=== PATIENT | male | born 1950 | race Caucasian/White ===

== ENCOUNTER 2019-10-07 07:52 | Inpatient (IN) ==
--- NOTE | 2019-09-22 11:21 | PAT Medication Instructions ---
Medication Instructions Date of Service September 22, 2019 Home Medications acetaminophen [Tylenol Extra Strength] 500 mg PO UD PRN allopurinol 300 mg PO QAM hydrocodone-acetaminophen 1 tab PO UD PRN lisinopril-hydrochlorothiazide 1 tab PO QAM loratadine [Claritin] 10 mg PO DAILY PRN metformin 500 mg PO BID rosuvastatin [Crestor] 10 mg PO HS DO NOT take the morning of surgery lisinopril-hydrochlorothiazide 1 tab PO QAM loratadine [Claritin] 10 mg PO DAILY PRN metformin 500 mg PO BID Take morning of surgery With a small sip of water, OTHERWISE NOTHING TO EAT OR DRINK AFTER MIDNIGHT: acetaminophen [Tylenol Extra Strength] 500 mg PO UD PRN (if needed, may be taken up to four hours before surgery) allopurinol 300 mg PO QAM hydrocodone-acetaminophen 1 tab PO UD PRN (if needed, may be taken up to four hours before surgery) Take evening before surgery acetaminophen [Tylenol Extra Strength] 500 mg PO UD PRN (if needed) hydrocodone-acetaminophen 1 tab PO UD PRN (if needed) loratadine [Claritin] 10 mg PO DAILY PRN (if needed) metformin 500 mg PO BID rosuvastatin [Crestor] 10 mg PO HS Other Notes If you have any questions please call us at [phone] or [phone] or [phone] or [phone]
--- NOTE | 2019-09-22 11:54 | Anesthesiology Consultation ---
Date of Service September 22, 2019 Assessment & Plan (1) Encounter for pre-operative examination: COVID Status: As of 09/21 assessment, patient denies travel to endemic area, known exposure/sick contacts, or symptoms of COVID19. Patient instructed to follow strict social distancing guidelines, wear a mask in public and avoid travel for 14 days prior to surgery. Preoperative COVID19 testing to be completed prior to surgery. Patient made aware to self-isolate as much as possible between COVID testing and surgery. Chart Review Chart Review: Acceptable Risk for Surgery and Patient seen in Pre Admission Testing Teaching & Discussion Instructed NPO after midnight before surgery, except medications with 15 cc of water. Medication instructions provided according to the PAT guidelines. History Surgery Operation Date: 10/07/19 11:05 Proposed Procedures p L2-S1 Decompression and Fusion, Spinal Cord Monitoring - Cj Cabral DO Height/Weight Height: 5 ft 9 in Weight: 102.2 kg Allergies Allergy/AdvReac Type Severity Reaction Status Date / Time ibuprofen [From Motrin] AdvReac Unknown PT HAS HX Verified 09/16/19 12:25 GI BLEED Medications Home Medications Medication Instructions Recorded Confirmed Last Taken acetaminophen [Tylenol Extra 500 mg PO UD PRN 09/16/19 09/16/19 Unknown Strength] allopurinol 300 mg PO QAM 09/16/19 09/16/19 Unknown hydrocodone-acetaminophen 1 tab PO UD PRN 09/16/19 09/16/19 Unknown lisinopril-hydrochlorothiazide 1 tab PO QAM 09/16/19 09/16/19 Unknown loratadine [Claritin] 10 mg PO DAILY PRN 09/16/19 09/16/19 Unknown metformin 500 mg PO BID 09/16/19 09/16/19 Unknown rosuvastatin [Crestor] 10 mg PO HS 09/16/19 09/16/19 Unknown Past Medical History Medical History High blood pressure High cholesterol History of GI bleed PT REPORTS R/T HX MOTRIN USE History of gout Sleep apnea CPAP Spinal stenosis Type 2 diabetes mellitus Exercise / Class Metabolic Activity II 4-5 Yardwork/Stairs/Walk up hill Past Family History Family History Other Family history of diabetes mellitus in mother Past Surgical History Surgical History History of back surgery NO HARDWARE History of bilateral knee replacement History of colonoscopy History of shoulder surgery LEFT Past Anesthesia History No Hx of Anesthesia Complications and No Family Hx of Anesthesia Complications History of PONV No Hx of PONV and No Hx of Motion Sickness Social History Smoking Status: Former smoker Do You Dip or Chew Tobacco: No Smoking End Date: 20 YR AGO Hx Alcohol Use: Yes (SOCIAL) Alcohol type: beer and hard liquor alcohol intake frequency: a few times a week Hx Substance Use: No Review of Systems Pt denies any recent chest pain, shortness of breath, palpitations, cough, fever or URI. Physical Exam Vital Signs BP: 155/83 P: 70bpm SPO2: 97% RA T: 98.2 F R: 16 ENMT Mouth: + dental restorations (2 crowns on molars) and + macroglossia; no chipped teeth and no loose teeth Thyromental Distance: > or= 3.5 Finger Breadths (3.5) Mallampati Class: II Neck + short neck and + thick neck; neck extension not limited Respiratory normal respiratory effort Auscultation: lungs clear to auscultation bilaterally and + diminished lung sounds (in apices) Cardiovascular Rate/Rhythm: regular rate and regular rhythm Heart Sounds: no murmur Vessels: no carotid bruit Extremities: no edema Testing Laboratory Results 09/22/19 12:00 09/22/19 12:00 PT 10.3 Seconds (9.0-12.0) 09/22/19 12:00 INR 1.0 (0.9-1.1) 09/22/19 12:00 APTT 27.1 Seconds (21.0-31.0) 09/22/19 12:00 Urine Color Yellow 09/22/19 12:00 Urine Appearance Clear (Clear) 09/22/19 12:00 Urine pH 6.0 (4.5-7.5) 09/22/19 12:00 Ur Specific Holt 1.010 (1.000-1.030) 09/22/19 12:00 Urine Protein Negative (Negative) 09/22/19 12:00 Urine Glucose (UA) Negative (Negative) 09/22/19 12:00 Urine Ketones Negative (Negative) 09/22/19 12:00 Urine Nitrite Negative (Negative) 09/22/19 12:00 Ur Leukocyte Esterase Negative (Negative) 09/22/19 12:00 Blood Type O Negative 09/22/19 12:00 Antibody Screen NEGATIVE 09/22/19 12:00 Electrocardiogram Date: 09/22/19 Findings: + NSR @ (69) Chest X-Ray Date: 09/22/19 FINDINGS: Cardiomediastinal and hilar silhouettes are within normal limits. No pneumothorax, pleural effusion, airspace consolidation or overt pulmonary edema. Mild eventration of the right hemidiaphragm. Calcified plaque of the thoracic aortic arch. Bones appear grossly intact. IMPRESSION: No acute process.
[2019-09-22 12:22] LABS: Basophils # (auto) 0.03 K/uL (0-0.2); Basophils % (auto) 0.5 %; Eosinophils # (auto) 0.11 K/uL (0-0.5); Hematocrit (blood only) 35.3 % (42-52); Immature Granulocytes # (auto) 0.07 K/uL (0.00-0.02); Immature Granulocytes % (auto) 1.3 %; Lymphocytes # (auto) 1.18 K/uL (1.2-3.4); Lymphocytes % (auto) 21.4 %; Mean Corpuscular Hemoglobin 32.4 pg (25-34); Mean Corpuscular Volume 95.4 fL (80-100); Mean Platelet Volume 9.6 fL (7.4-10.4); Monocytes % (auto) 5.4 %; Neutrophils # (auto) 3.82 K/uL (1.4-6.5); Neutrophils % (auto) 69.4 %; Platelet Count 178 K/uL (130-400); RDW Coefficient of Variation 13.7 % (11.5-14.5); RDW Standard Deviation 47.4 fL (36.4-46.3); White Blood Count 5.51 K/uL (4.8-10.8)
--- NOTE | 2019-09-22 12:23 | XRay Report ---
XR chest Pre-admission PA/Lat HISTORY: 69 years-old Male PAT preoperative exam. No acute chest complaints. COMPARISON: None TECHNIQUE: PA and lateral views of the chest FINDINGS: Cardiomediastinal and hilar silhouettes are within normal limits. No pneumothorax, pleural effusion, airspace consolidation or overt pulmonary edema. Mild eventration of the right hemidiaphragm. Calcifi ed plaque of the thoracic aortic arch. Bones appear grossly intact. IMPRESSION: No acute process. ACT 112: Negative or not required by law. The above report was generated using voice recognition software. It may contain grammatical, syntax o r spelling errors. Electronically signed by: Liang Herbert M.D. 09/22/2019 12:21 PM
[2019-09-22 12:27] LABS: Appearance Urine Clear (Clear); Bilirubin Urine Negative (Negative); Blood Urine Negative (Negative); Color Urine Yellow; Glucose Urine UA Negative (Negative); Ketones Urine Negative (Negative); Leukocyte Esterase Urine Negative (Negative); Nitrite Urine Negative (Negative); Protein Urine Negative (Negative); Urobilinogen Urine Negative (Negative)
[2019-09-22 12:35] LABS: Partial Thromboplastin Time 27.1 Seconds (21.0-31.0); Prothrombin Time 10.3 Seconds (9.0-12.0)
[2019-09-22 13:55] LABS: BUN Creatinine Ratio 16.9 (10-20); Creatinine Clr Calc Pharmacy 77.5 ml/min; Est GFR (Non-African American) 69.9; Potassium 4.1 mmol/L (3.5-5.1)
--- NOTE | 2019-09-23 06:45 | Electrocardiogram Report ---
Test Reason : Blood Pressure : / mmHG Vent. Rate : 069 BPM Atrial Rate : 069 BPM P-R Int : 162 ms QRS Dur : 094 ms QT Int : 384 ms P-R-T Axes : 070 052 066 degrees QTc Int : 411 ms Normal sinus rhythm Normal ECG No previous ECGs available Confirmed by Hal Gaytan ([id number]) on 09/23/2019 6:45:14 AM Referred By: Cj Cabral Confirmed By:Hal Gaytan
[~2019-10-07 07:52] MED LIST: ACETAMINOPHEN 500 MG TAB PO SCH; CEFAZOLIN 2000MG 2,000 MG/15 ML SYR IV SCH; CeleBREX 200 MG CAP PO SCH; GABAPENTIN 300 MG CAP PO SCH; LR 15ML/HR IV SCH
[2019-10-07] MEDS ORDERED: HYDROmorphone INJ 1 MG/ML SYRINGE IV PRN (08:13)
[2019-10-07] MEDS ORDERED: LABETALOL HCL IV 5 MG/ML 20ML IV PRN (08:13)
[2019-10-07] MEDS ORDERED: ATROPINE SULFATE 0.1 MG/ML 10ML SYR IV PRN (08:13)
[2019-10-07] MEDS ORDERED: ePHEDrine sulfate 50 MG/ML AMP IV PRN (08:13)
[2019-10-07] MEDS ORDERED: PHENYLEPHRINE 100MCG/ML 5ML SYR IV PRN (08:13)
[2019-10-07] MEDS ORDERED: ONDANSETRON INJ 2 MG/ML 2 ML VIAL IV PRN ×2 (08:13→14:26)
[2019-10-07] MEDS ORDERED: MEPERIDINE HCL 25 MG/ML CARP/VIAL IV PRN (08:13)
[2019-10-07] MEDS ORDERED: INSULIN ASPART PER UNIT SC STA ×3 (09:08→13:25)
--- NOTE | 2019-10-07 09:24 | History & Physical Bridge Note ---
Date of Service October 07, 2019 History & Physical Bridge Note I have examined the patient, reviewed the History & Physical and in the interval since the performance of the History & Physical I have noted the following changes of clinical significance: no changes noted
--- NOTE | 2019-10-07 09:25 | History & Physical Report ---
Date of Service October 07, 2019 Assessment & Plan (1) Neurogenic claudication due to lumbar spinal stenosis: L2-S1 decompression fusion Present on Admission?: Yes History of Present Illness Chief Complaint: Back and bilateral leg pain Primary Care Provider: Isidro Barajas DO This is a 69-year-old male who presents with worsening back and bilateral leg pain. After failing course of nonoperative care is here for surgical intervention. Allergies Allergy/AdvReac Type Severity Reaction Status Date / Time ibuprofen [From Motrin] AdvReac Unknown PT HAS HX Verified 10/07/19 08:24 GI BLEED Home Medications Home Medications Medication Instructions Recorded Confirmed Type acetaminophen [Tylenol Extra 500 mg PO UD PRN 09/16/19 10/07/19 History Strength] allopurinol 300 mg PO QAM 09/16/19 10/07/19 History hydrocodone-acetaminophen 1 tab PO UD PRN 09/16/19 10/07/19 History lisinopril-hydrochlorothiazide 1 tab PO QAM 09/16/19 10/07/19 History loratadine [Claritin] 10 mg PO DAILY PRN 09/16/19 10/07/19 History metformin 500 mg PO TID 09/16/19 10/07/19 History rosuvastatin [Crestor] 10 mg PO HS 09/16/19 10/07/19 History Past Med/Surg History Medical History High blood pressure High cholesterol History of GI bleed PT REPORTS R/T HX MOTRIN USE History of gout Sleep apnea CPAP Spinal stenosis Type 2 diabetes mellitus Surgical History History of back surgery NO HARDWARE History of bilateral knee replacement History of colonoscopy History of shoulder surgery LEFT Family History Other Family history of diabetes mellitus in mother Social History Smoking Status: Former smoker Smoking End Date: 20 YR AGO; Do You Dip or Chew Tobacco: No; Hx Alcohol Use: Yes (SOCIAL) Alcohol type: beer and hard liquor Hx Substance Use: No Preferred Language: Kyrgyz Communication Ability: Effective Communication Ability Comment: PT REQUESTS TO BE ON SPEAKER PHONE FOR INTERVIEW Coastal Tug Mate Required: No Beliefs That Will Affect Care: None Current Living Situation: Spouse Other Information That Helps Us Care for You: No Feels Safe at Home: Yes Physical Exam Physical Exam: Patient is alert and oriented neurologically intact. Heart regular rate and rhythm. Lungs clear to auscultation. Results & Data Vital Signs (Past 12 Hours) Vital Signs Temp Pulse Resp BP Pulse Ox 10/07/19 08:15 36.8 C 81 18 176/90 H 98
[2019-10-07] MEDS ORDERED: PROPOFOL IV EMULSION 10 MG/ML 20 ML VIAL IV ONE (09:32)
[2019-10-07] MEDS ORDERED: ONDANSETRON INJ 2 MG/ML 2 ML VIAL ONE (09:32)
[2019-10-07] MEDS ORDERED: HYDROmorphone INJ 2 MG/ML SYR/VIAL ONE (09:32)
[2019-10-07] MEDS ORDERED: GLYCOPYRROLATE 0.2 MG/ML VIAL ONE (09:32)
[2019-10-07] MEDS ORDERED: DEXAMETHASONE SOD INJ 4 MG/ML VIAL ONE (09:32)
[2019-10-07] MEDS ORDERED: LIDOCAINE HCL 2% 2 ML VIAL/AMP(20MG/ML) INFIL ONE (09:32)
[2019-10-07] MEDS ORDERED: MIDAZOLAM HCL 1 MG/ML 2ML VIAL ONE (09:32)
[2019-10-07] MEDS ORDERED: LARYING-O-JET KIT (LTA) ONE (09:32)
[2019-10-07] MEDS ORDERED: ROCURONIUM BROMIDE 10 MG/ML 5 ML VIAL IV ONE ×5 (09:32→12:46)
[2019-10-07] MEDS ORDERED: SUCCINYLCHOLINE CHLORIDE 20 MG/ML 10 ML VIAL IV ONE (09:32)
[2019-10-07] MEDS ORDERED: NEOSTIGMINE METHYLSULFATE 1 MG/ML 10ML VIAL ONE (09:32)
[2019-10-07] MEDS ORDERED: BUPIVACAINE/EPINEPHRINE 0.25% 1:200,000 30 ML VIAL ONE (09:46)
[2019-10-07] MEDS ORDERED: BACITRACIN INJ 50,000 UNIT VIAL ONE (09:46)
[2019-10-07] MEDS ORDERED: NovoLIN-R INSULIN PER UNIT CHARGE ONE (10:49)
[2019-10-07] MEDS ORDERED: ALBUMIN HUMAN 5% 12.5 GM/250 ML VIAL IV ONE ×2 (11:42→12:14)
[2019-10-07] MEDS ORDERED: fentaNYL citrate 100 MCG/2 ML VIAL ONE (12:34)
[2019-10-07] MEDS ORDERED: FLOSEAL HEMOSTATIC MATRIX 10ML TOP ONE (12:54)
--- NOTE | 2019-10-07 12:55 | Operative Report ---
Post Operative Report Pre & Post Diagnosis Operation Date: 10/07/19 09:35 Pre-Op Diagnosis: Lumbar Spinal Stenosis with Neurogenic Claudication Post-Op Diagnosis: Lumbar Spinal Stenosis with Neurogenic Claudication I identified the patient and participated in the time-out.: Yes Procedure Operation Date: 10/07/19 09:35 Actual Procedures #1 revision decompression and fusion L2-3, L3-4, L4-5 and L5-S1. #2 posterior spinal fusion L2-S1. #3 placement posterior segmental instrumentation L2-S1. #4 interbody fusion L3-4, L4-5 and L5-S1. #5 placed a peek cage 9 x 26 mm at L3-4 9 x 26 mm at L4-5 and 12 x 26 mm L5-S1. #6 placement of locally harvested morselized autograft in the posterior lateral gutters. #7 placement infuse collagen sponge, master graft in the posterior lateral gutters and ostial amp and interbody space. Surgeon Cj Cabral, DO Cloth Weaver Miley Davis Estimated Blood Loss 800 Findings See Below The patient is 5 foot 9 weighing over 100 kg with a BMI in excess of 32. This combined with an EBL of greater than 800 cc created significant technical difficulty adding at least 50% increase to the operative time. Specimens None Indications This is a 69-year-old male who presents with above-mentioned diagnosis after failing extensive course of nonoperative care is here for the above-mentioned procedure. Description of Procedure Patient was met with identified informed consent obtained. Patient was then taken to the operative suite underwent intubation placed in a prone position the Luis Fernando table on top of the Wilmar frame. All bony prominences well-padded eyes inspected to ensure no external pressure placed upon the. This point the lumbar spine was prepped and draped in a normal sterile fashion. Sharp dissection with the assistance of Bovie cautery was performed down to and exposing the remaining lamina and transverse processes of L2 L3-L4-L5 and S1 levels bilaterally. From a caudal cephalad fashion a revision complete laminectomy of L5 L4 L3 and L2 was performed including bilateral medial facetectomies and foraminotomies addressing severe spinal stenosis. Pedicle screws were then placed in L2 L3-L4-L5 and the S1 levels bilaterally with assistance of fluoroscopy and appropriately sized karlene placed. By way of a trans-foramen approach on the left complete discectomy of L5-S1 was performed endplates curetted to subcortical bleeding bone and a 12 x 26 mm peek cage filled osteo-amp bone graft tapped in position. Then proceeded L for L5. Again by way of a transforaminal portion left complete discectomy performed endplates curetted to subcortical bleeding bone and a 9 x 26 mm peek cage filled with osteo-bone graft tapped in position. Lastly progressed to L3- L4 and again by way of a transforaminal portion left complete discectomy performed endplates curetted to subcortical any bone and a 9 x 26 mm peek cage filled with osteo-bone graft tapped in position. The rods were then locked into final position bilaterally. The transverse processes of L2 L3-L4-L5 and sacral ala burred to subcortical bleeding bone. Infuse collagen sponge mass graft local autograft was then placed in the posterior lateral gutters. 15 round EDDIE drain inserted. The incision was then closed with 1 Vicryl in the fascia 2-0 Vicryl subcutaneously and 4 Monocryl for final skin closure. Steri-Strip sterile dressings placed. Patient waken taken PACU stable addition. Please note spinal cord monitoring was utilized that the procedure no changes noted. Lastly Miley Davis was present at the entire procedure involved the patient positioning complex portions of the surgery and final skin closure. I attest to the content of the Intraoperative Record and any orders documented therein. Any exceptions are noted below.
[2019-10-07] MEDS ORDERED: INSULIN ASPART PER UNIT ONE (13:26)
[2019-10-07] MEDS: fentaNYL citrate 100 MCG/2 ML VIAL IV PRN ×2 (13:28→13:33)
--- NOTE | 2019-10-07 13:32 | Fluoroscopy Report ---
INTRAOPERATIVE RADIOGRAPHS CLINICAL HISTORY: L2-S1 spinal fusion. Fluoroscopy time: 28 seconds. FINDINGS: 4 spot fluoroscopic views of the lumbar spine are presented. There has been discectomy at L 3-L4, L4-L5, and L5-S1 with laminectomy and posterior fusion from L2-S1. Interpedicular screws are pr esent at all levels. The orthopedic hardware appears intact. IMPRESSION: Intraoperative images from L2-S1 spinal fusion as above. Electronically signed by: Lazaro Galaviz M.D. 10/07/2019 1:31 PM
[2019-10-07] MEDS ORDERED: LORATADINE 10 MG TAB PO PRN (14:26)
[2019-10-07] MEDS ORDERED: PROMETHAZINE HCL 12.5 MG in SODIUM CHLORIDE 0.9% 50 ML IV PRN (14:26)
[2019-10-07] MEDS ORDERED: DO NOT ADMINISTER PNEUMOCOCCAL VACCINE PRN (14:26)
[2019-10-07] MEDS ORDERED: LORazepam 0.5 MG TAB PO PRN (14:26)
[2019-10-07] MEDS ORDERED: DO NOT ADMINISTER FLU VACCINE PRN (14:26)
[2019-10-07] MEDS ORDERED: HYDROmorphone INJ 0.5 MG/0.5 ML SYR IV PRN (14:26)
[2019-10-07] MEDS ORDERED: NALOXONE HCL 0.4 MG/1 ML VIAL/CARP IV PRN (14:26)
[2019-10-07] MEDS ORDERED: ACETAMINOPHEN 500 MG TAB PO PRN (14:26)
[2019-10-07] MEDS ORDERED: METOCLOPRAMIDE HCL INJ 5 MG/ML 2 ML VIAL IV PRN (14:26)
[2019-10-07] MEDS ORDERED: SOD PHOSPHATE/SOD BIPHOSPHATE ENEMA 132 ML BTL PR PRN (14:26)
[2019-10-07] MEDS ORDERED: FAMOTIDINE 20 MG TAB PO PRN (14:26)
[2019-10-07] MEDS ORDERED: TRAMADOL HCL 50 MG TABLET PO PRN (14:26)
[2019-10-07] MEDS ORDERED: LORazepam 0.5 MG/1 ML VIAL IV PRN (14:26)
[2019-10-07] MEDS ORDERED: ALUMINUM/MAGNESIUM SUSP 30 ML UDC PO PRN (14:26)
[2019-10-07] MEDS ORDERED: ACETAMINOPHEN 1,000 MG/100 ML VIAL IV PRN (14:26)
[2019-10-07] MEDS ORDERED: bisacodyL 10 MG SUPP PR PRN (14:26)
[2019-10-07] MEDS ORDERED: ONDANSETRON 4 MG OD TAB PO PRN (14:26)
[2019-10-07] MEDS ORDERED: PHARMACY GLYCEMIC MGMT CONSULT PRN (14:41)
[2019-10-07] MEDS: HYDROmorphone INJ 1 MG/ML SYRINGE IV PRN ×2 (14:51→22:18)
--- NOTE | 2019-10-07 15:05 | Pharmacy Report ---
Glycemic Control Consultation - Date of Service October 07, 2019 - Scope Scope: Glycemic Pharmacist consulted for glycemic control and to write orders per [facility] inpatient glycemic control protocol. - Objective Weight: 100.652 kg Accuchecks BSG (last 24hrs): 10/07/19 10/07/19 10/07/19 08:10 10:45 12:00 POC Glucose 198 H 202 H 172 H 10/07/19 13:18 POC Glucose 200 H - Recent Pertinent Medications Outpatient Anti-diabetic Regimen: * metformin 500 tid * A1c = ordered for 10/07 AM Risk Factors for Insulin Resistance: * Steroids: dxm 8 iv * Recent Surgery: POD 0 * Diet: clears - Assessment & Plan Assessment & Plan: ASSESSMENT: * 69 year old, with neurogenic claudication due to lumbar spinal stenosis now s/p surgery, POD 0 * Type 2 diabetic managed only on metformin at home. Unclear A1C, ordered for tomorrow * Patient received dexamethasone intraop therefore anticipate steroid induced hyperglycemia / plan to utilize NPH and novolog post op PLAN FOR INPATIENT GLYCEMIC CONTROL: * Holding outpatient oral diabetes medications * Basal insulin * NPH 20 units x 1 now (0.2 units/kg) - to cover steroids * Bolus insulin * NovoLog per scale ACHS or Q6hrs while NPO * Goal Range: Low 110 mg/dL - High 140 mg/dL * Correction Factor: 15 mg/dL/unit * Nutritional / Prandial insulin per carb ratio of 1 unit per 5 grams CHO consumed * Please note that the plan above was derived based on current level of insulin resistance and hospital stress. These recommendations are appropriate for inpatient admission only. Plan of care upon discharge will need to be reassessed to avoid potential outpatient hypo/hyperglycemia. Thank you.
[2019-10-07] MEDS ORDERED: NovoLIN-N (NPH) PER UNIT CHARGE SQ ONE (15:15)
--- NOTE | 2019-10-07 15:46 | Consultation ---
Date of Consultation October 07, 2019 Assessment & Plan (1) Status post lumbar surgery: Post op day# 0 S/P L2-L5 decompression and fusion by Dr Cabral EBL#800ml -pain management per ortho -wound management per ortho -PT/OT as appropriate -DVT prophylaxis per ortho -incentive spirometry -monitor H&H for acute blood loss anemia; pre-op Hgb: 12 (2) Type 2 diabetes mellitus: Pt Reports A1c: 7.3 on 09/29/2019 (do not have formal documentation) -Hold metformin -Novolog sliding scale, glycemic pharmacy on board, appreciate management (3) HTN (hypertension): BP stable -Will hold lisinopril/HCTZ and reassess tomorrow (4) HLD (hyperlipidemia): -Continue rosuvastatin (5) Sleep apnea: -CPAP HS (6) History of gout: -Continue allopurinol DVT Prophylaxis -SCDs per ortho Disposition per primary service Follows with Dr Isidro Barajas in [place] for routine care Pt was seen and care coordinated with Dr Allred. See addendum Thank you for this consultation. We will follow the patient with you during their hospital stay. You can reach a [facility] via pager @ [phone]. Supervising Physician Co-Signing Physician Notes Attending addendum: Patient seen and examined, care coordinated with Keena Zavala PA-C 69-year-old male status post spinal decompression surgery today Recovering well postop EBL 800 mL We will check H&H in a.m. for SS to assess acute blood loss anemia Physical exam: General: Very pleasant no acute distress Lungs: Clear to auscultate no wheeze or rales Heart with regular rate and rhythm no edema Abdomen: Soft nontender Neuro: No focal deficit, alert and oriented times Hypertension: Blood pressure was borderline low postoperatively, given IV fluids, Hold HCTZ lisinopril, We will reassess tomorrow please refer to further documentation by Lauren Zavala PA-C for discussion of other chronic issues Alana Allred MD History of Present Illness Requesting Physician: Dr Cabral Reason for Consultation: Post op medical management Attending Physician: Cj Cabral DO History of Present Illness Pt is 69 y/o M with PMH HTN, HLD, DM II, sleep apnea, obesity, gout seen in medical consultation s/p L2-L5 decompression and fusion today by Dr Cabral. Post op having some low back pain. Reports legs still feel a little tingling. No SOB, CP, nausea, dizziness. Denies fever/chills, neck pain, palpitations, cough, sore throat, abdominal pain, extremity edema, rashes, urinary symptoms. Allergies Allergy/AdvReac Type Severity Reaction Status Date / Time ibuprofen [From Motrin] AdvReac Unknown PT HAS HX Verified 10/07/19 08:24 GI BLEED Home Medications Home Medications Medication Instructions Recorded Confirmed Type acetaminophen [Tylenol Extra 500 mg PO UD PRN 09/16/19 10/07/19 History Strength] allopurinol 300 mg PO QAM 09/16/19 10/07/19 History hydrocodone-acetaminophen 1 tab PO UD PRN 09/16/19 10/07/19 History lisinopril-hydrochlorothiazide 1 tab PO QAM 09/16/19 10/07/19 History loratadine [Claritin] 10 mg PO DAILY PRN 09/16/19 10/07/19 History metformin 500 mg PO DAILY 09/16/19 10/07/19 History rosuvastatin [Crestor] 10 mg PO HS 09/16/19 10/07/19 History metformin 1,000 mg PO PM 10/07/19 10/07/19 History Patient History Medical History High blood pressure High cholesterol History of GI bleed PT REPORTS R/T HX MOTRIN USE History of gout Obesity Sleep apnea CPAP Spinal stenosis Type 2 diabetes mellitus Surgical History History of back surgery NO HARDWARE History of bilateral knee replacement History of colonoscopy History of shoulder surgery LEFT Family History Other Family history of diabetes mellitus in mother Social History Smoking Status: Former smoker Smoking End Date: 20 YR AGO; Do You Dip or Chew Tobacco: No; Hx Alcohol Use: Yes (SOCIAL) Alcohol type: beer and hard liquor Hx Substance Use: No Preferred Language: Bermudian Communication Ability: Effective Communication Ability Comment: PT REQUESTS TO BE ON SPEAKER PHONE FOR INTERVIEW Skip Load Driver Required: No Beliefs That Will Affect Care: None Current Living Situation: Spouse Other Information That Helps Us Care for You: No Feels Safe at Home: Yes Review of Systems Review of Systems: All systems reviewed & are unremarkable except as noted in HPI & below Physical Exam Physical Exam: General: no distress, obesity Head: normocephalic, atraumatic Eyes: PERRL, EOM's intact, conjunctiva non-injected, anicteric ENT: normal inspection external ears, nose, mucous membranes moist Neck: supple, trachea midline Lungs: clear, no respiratory distress, no wheezing/rhonchi/rales CV: RRR, no murmur, no pretibial edema Abd: normal BS, soft, non-tender Back: surgical dressing in place is dry, +EDDEI drain with serosanguineous drainage Ext: no cyanosis, no calf tenderness; pedal pushes and pulls intact bilaterally, sensation to light touch intact, distal pulses intact Neuro: A&O x 3, no focal deficits noted, normal affect Skin: warm, dry Results & Data ([facility]) Vital Signs (Past 12 Hours) Vital Signs Temp Pulse Pulse Resp BP Pulse Ox 10/07/19 15:12 36.6 C 84 17 121/74 98 10/07/19 14:56 82 16 127/78 97 10/07/19 14:15 36.4 C L 84 16 129/76 98 10/07/19 14:05 88 16 130/78 95 10/07/19 13:50 36.7 C 93 H 15 145/73 H 98 10/07/19 13:40 94 H 15 143/83 H 97 10/07/19 13:30 94 H 14 145/90 H 97 10/07/19 13:20 94 H 17 136/92 97 10/07/19 13:13 36.9 C 84 14 134/65 94 10/07/19 08:15 36.8 C 81 18 176/90 H 98
[2019-10-07] MEDS: SODIUM CHLORIDE 0.9% 1000ML 1,000 ML IV SCH ×2 (16:31→23:17)
[2019-10-07] MEDS: CEFAZOLIN 2000MG 2,000 MG/15 ML SYR IV SCH ×2 (16:33→23:55)
[2019-10-07] MEDS: KETOROLAC TROMETHAMINE 15 MG/ML VIAL IV SCH ×2 (16:34→21:08)
[2019-10-07] MEDS: INSULIN ASPART 100 UNITS/ML 3 ML PEN SC SCH ×3 (18:55→23:56)
[2019-10-07] MEDS: DOCUSATE SODIUM/SENNA 50/8.6MG TAB PO SCH (21:08)
[2019-10-07] MEDS: ROSUVASTATIN CALCIUM 10 MG TAB PO SCH (21:08)
[2019-10-08] MEDS: HYDROmorphone INJ 1 MG/ML SYRINGE IV PRN (02:42)
[2019-10-08] MEDS: INSULIN ASPART 100 UNITS/ML 3 ML PEN SC SCH ×5 (05:20→21:16)
[2019-10-08] MEDS: KETOROLAC TROMETHAMINE 15 MG/ML VIAL IV SCH ×2 (05:21→10:36)
[2019-10-08] MEDS: SODIUM CHLORIDE 0.9% 1000ML 1,000 ML IV SCH (05:33)
[2019-10-08] MEDS: POLYETHYLENE (MIRALAX) 17 GM PACK PO SCH ×4 (05:34→23:15)
[2019-10-08 06:45] LABS: Hemoglobin 8.2 g/dL (14.0-18.0); Immature Granulocytes # (auto) 0.04 K/uL (0.00-0.02); Immature Granulocytes % (auto) 0.5 %; Lymphocytes # (auto) 0.58 K/uL (1.2-3.4); Lymphocytes % (auto) 7.3 %; Mean Corpuscular Hemoglobin 32.4 pg (25-34); Mean Corpuscular Hgb Conc 35.7 g/dL (32-36); Mean Corpuscular Volume 90.9 fL (80-100); Mean Platelet Volume 8.8 fL (7.4-10.4); Neutrophils # (auto) 6.93 K/uL (1.4-6.5); Neutrophils % (auto) 87.2 %; Platelet Count 151 K/uL (130-400); RDW Coefficient of Variation 13.4 % (11.5-14.5); RDW Standard Deviation 44.5 fL (36.4-46.3); Red Blood Count 2.53 M/uL (4.7-6.1); White Blood Count 7.95 K/uL (4.8-10.8)
--- NOTE | 2019-10-08 06:48 | Anesthesiology Progress Note ---
Date of Service October 08, 2019 Anesthesia Post Procedure Vital Signs Vital Signs: Temp Pulse Pulse Pulse Resp BP Pulse Ox 10/08/19 03:54 76 18 96 10/08/19 02:37 36.6 C 76 16 134/72 97 10/07/19 22:56 36.8 C 81 16 109/60 96 10/07/19 22:19 87 18 98 10/07/19 17:14 36.5 C 94 H 17 142/84 H 98 10/07/19 15:12 36.6 C 84 17 121/74 98 10/07/19 14:56 82 16 127/78 97 10/07/19 14:15 36.4 C L 84 16 129/76 98 10/07/19 14:05 88 16 130/78 95 10/07/19 13:50 36.7 C 93 H 15 145/73 H 98 10/07/19 13:40 94 H 15 143/83 H 97 10/07/19 13:30 94 H 14 145/90 H 97 10/07/19 13:20 94 H 17 136/92 97 10/07/19 13:13 36.9 C 84 14 134/65 94 10/07/19 08:15 36.8 C 81 18 176/90 H 98 Pain Intensity Lower Back: Pain Intensity: 4 Transfer of Care Handoff Completed per policy Notes Mental Status: alert / awake / arousable Patient Amnestic to Procedure: Yes Nausea / Vomiting: adequately controlled Pain: adequately controlled Airway Patency, RR, SpO2: stable & adequate BP & HR: stable & adequate Hydration State: stable & adequate Anesthetic Complications: no major complications apparent and Pt Satisfied with anesthetic care
[2019-10-08 07:27] LABS: BUN Creatinine Ratio 16.7 (10-20); Calcium 8.7 mg/dl (8.5-10.1); Creatinine Clr Calc Pharmacy 80.6 ml/min; Est GFR (African American) 85.7; Est GFR (Non-African American) 73.9
[2019-10-08 07:57] LABS: Estimated Average Glucose 174 mg/dl; Hemoglobin A1C 7.7 % (4.5-5.6)
[2019-10-08] MEDS: allopurinoL 300 MG TAB PO SCH (08:48)
[2019-10-08] MEDS: OXYCODONE HCL IR 5 MG TAB (IMMEDIATE RELEASE) PO PRN ×3 (08:52→20:30)
--- NOTE | 2019-10-08 10:48 | Pharmacy Report ---
Pharmacy Glycemic Short Note 2 - Date of Service October 08, 2019 - Glycemic Short BSG Results (Last 24 hours): 10/07/19 10/07/19 10/07/19 10:45 12:00 13:18 Glucose POC Glucose 202 H 172 H 200 H 10/07/19 10/07/19 10/07/19 17:12 21:06 23:53 Glucose POC Glucose 228 H 265 H 148 H 10/08/19 10/08/19 10/08/19 05:15 06:36 08:02 Glucose 171 H POC Glucose 146 H 216 H ASSESSMENT: * 69 year old, with neurogenic claudication due to lumbar spinal stenosis now s/p surgery, POD 0 * Type 2 diabetic managed only on metformin at home. Unclear A1C, ordered for tomorrow * Patient received dexamethasone intraop therefore anticipate steroid induced hyperglycemia / plan to utilize NPH and novolog post op 10/07 * Patient received total of 54 units of insulin yesterday, of which 20 were NPH * Fasting BSG 171 mg/dL - likely still seeing effects for steroids, anticipate BSGs to improve later today * Continue same CF/CR for now / may add small dose of NPH with dinner if BSGs remain elevated PLAN FOR INPATIENT GLYCEMIC CONTROL: * Holding outpatient oral diabetes medications * Basal insulin * NPH 0-10 units if BSG >180 at dinner * Bolus insulin * NovoLog per scale ACHS or Q6hrs while NPO * Goal Range: Low 110 mg/dL - High 140 mg/dL * Correction Factor: 15 mg/dL/unit * Nutritional / Prandial insulin per carb ratio of 1 unit per 5 grams CHO consumed * Please note that the plan above was derived based on current level of insulin resistance and hospital stress. These recommendations are appropriate for inpatient admission only. Plan of care upon discharge will need to be reassessed to avoid potential outpatient hypo/hyperglycemia. PLAN FOR DISCHARGE: * A1C of 7.7% on admission. A reasonable goal for adults is les than 7% * Patient close to goal with A1C. Would recommend continuation of home metformin at discharge. * Would recommend continued patient self management with healthy lifestyle (diet, exercise) and SMBG
[2019-10-08] MEDS ORDERED: DEXAMETHASONE SOD PHOSPHATE 8 MG in SYRINGE 0 ML IV SCH (12:00)
--- NOTE | 2019-10-08 13:30 | Orthopedic Progress Note ---
Date of Service October 08, 2019 Assessment & Plan (1) Neurogenic claudication due to lumbar spinal stenosis: At this time we will continue physical therapy monitor his EDDIE output hopefully discharge home in the next few days. Admission and Anticipated Discharge Date Admission Date: October 07, 2019 Subjective Back pain controlled leg symptoms improved. Physical Exam Physical Exam: Patient is in the chair at the bedside. Is good strength testing. Results & Data ([facility]) Vital Signs (Past 12 Hours) Vital Signs Temp Pulse Pulse Resp BP Pulse Ox 10/08/19 10:57 36.6 C 79 16 122/68 94 10/08/19 07:21 36.7 C 80 16 123/68 94 10/08/19 03:54 76 18 96 10/08/19 02:37 36.6 C 76 16 134/72 97
[2019-10-08] MEDS ORDERED: NovoLIN-N (NPH) PER UNIT CHARGE SQ SCH (17:00)
--- NOTE | 2019-10-08 18:06 | Hospitalist Progress Note ---
Date of Service October 08, 2019 Assessment & Plan (1) Status post lumbar surgery: Post op day# 1 S/P L2-L5 decompression and fusion by Dr Cabral Acute blood loss and hemodilution related anemia Preoperative H&H was 12.0 g/dl and 35.3%. POD #1, H&H 8.2 g/dl and 23%. possible cause Perioperative blood loss pt recieved IV fluid as well follow H&H transfusion for Hb < 8 or symptomatic - -PT/OT per Ortho -incentive spirometry (2) Type 2 diabetes mellitus: Pt Reports A1c: 7.3 on 09/29/2019 (do not have formal documentation) -Hold metformin -Novolog sliding scale, glycemic pharmacy on board, appreciate management (3) HTN (hypertension): BP stable - lisinopril/HCTZ resumed (4) HLD (hyperlipidemia): -Continue rosuvastatin (5) Sleep apnea: -CPAP HS (6) History of gout: -Continue allopurinol DVT Prophylaxis -SCDs per ortho Disposition per primary service/spinal Orthopedics Dr Cabral Follows with Dr Isidro Barajas in [place] for routine care Thank you for this consultation. We will follow the patient with you during their hospital stay. You can reach a [facility] of [facility]/10 via pager @ [phone]. Admission and Anticipated Discharge Date Admission Date: October 07, 2019 Subjective Back pain controlled leg symptoms improved. Physical Exam Physical Exam: General: no distress, obesity Head: normocephalic, atraumatic Eyes: PERRL, EOM's intact, conjunctiva non-injected, anicteric ENT: normal inspection external ears, nose, mucous membranes moist Neck: supple, trachea midline Lungs: clear, no respiratory distress, no wheezing/rhonchi/rales CV: RRR, no murmur, no pretibial edema Abd: normal BS, soft, non-tender Back: surgical dressing in place is dry, +EDDIE drain with serosanguineous drainage Ext: no cyanosis, no calf tenderness; pedal pushes and pulls intact bilaterally, sensation to light touch intact, distal pulses intact Neuro: A&O x 3, no focal deficits noted, normal affect Skin: warm, dry Results & Data Results & Data ([facility]) Vital Signs (Past 12 Hours) Vital Signs Temp Pulse Resp BP Pulse Ox 10/08/19 15:10 36.8 C 84 17 122/71 96 10/08/19 10:57 36.6 C 79 16 122/68 94 10/08/19 07:21 36.7 C 80 16 123/68 94
[2019-10-08] MEDS: DOCUSATE SODIUM/SENNA 50/8.6MG TAB PO SCH (20:30)
[2019-10-08] MEDS: ROSUVASTATIN CALCIUM 10 MG TAB PO SCH (20:30)
[2019-10-09] MEDS: OXYCODONE HCL IR 5 MG TAB (IMMEDIATE RELEASE) PO PRN ×4 (01:47→21:19)
[2019-10-09] MEDS: POLYETHYLENE (MIRALAX) 17 GM PACK PO SCH ×4 (05:37→23:55)
[2019-10-09] MEDS: allopurinoL 300 MG TAB PO SCH (07:41)
[2019-10-09] MEDS: INSULIN ASPART 100 UNITS/ML 3 ML PEN SC SCH ×4 (07:43→21:02)
[2019-10-09] MEDS ORDERED: NovoLIN-N (NPH) PER UNIT CHARGE SQ ONE (09:00)
[2019-10-09] MEDS: DEXAMETHASONE SOD PHOSPHATE 8 MG in SYRINGE 0 ML IV SCH (09:16)
[2019-10-09] MEDS: MAGNESIUM HYDROXIDE SUSP 30 ML UDC PO PRN (09:16)
[2019-10-09 10:23] LABS: Hematocrit (blood only) 24.5 % (42-52); Hemoglobin 8.3 g/dL (14.0-18.0)
--- NOTE | 2019-10-09 11:07 | Orthopedic Progress Note ---
Date of Service October 09, 2019 Assessment & Plan (1) Neurogenic claudication due to lumbar spinal stenosis: This time we will continue physical therapy monitor his EDDIE operatively discharge home in the next few days. Present on Admission?: Yes Admission and Anticipated Discharge Date Admission Date: October 07, 2019 Subjective Patient's back pain is controlled leg symptoms markedly improved Physical Exam Physical Exam: Patient appears comfortable. Is excellent strength testing. Results & Data ([facility]) Vital Signs (Past 12 Hours) Vital Signs Temp Pulse Pulse Resp BP Pulse Ox 10/09/19 06:35 36.8 C 90 14 126/74 94 10/09/19 03:43 88 18 95 10/09/19 00:03 36.8 C 81 14 122/72 96 10/09/19 00:01 80 16 94
--- NOTE | 2019-10-09 15:12 | Pharmacy Report ---
Pharmacy Glycemic Short Note 2 - Date of Service October 09, 2019 - Glycemic Short BSG Results (Last 24 hours): 10/08/19 10/08/19 10/09/19 17:06 21:00 06:33 POC Glucose 149 H 185 H 183 H 10/09/19 12:23 POC Glucose 135 H ASSESSMENT: 10/08 * Patient received total of 44 units of insulin yesterday * Fasting BSG 183 mg/dL - will start NPH 25 units x 1 this AM d/t elevated fasting BSG and also starting dex IV * Tighten CF/CR with addition of steroids today 10/07 * Patient received total of 54 units of insulin yesterday, of which 20 were NPH * Fasting BSG 171 mg/dL - likely still seeing effects for steroids, anticipate BSGs to improve later today * Continue same CF/CR for now / may add small dose of NPH with dinner if BSGs remain elevated PLAN FOR INPATIENT GLYCEMIC CONTROL: * Holding outpatient oral diabetes medications * Basal insulin * NPH 25 units x 1 * Bolus insulin * NovoLog per scale ACHS or Q6hrs while NPO * Goal Range: Low 110 mg/dL - High 140 mg/dL * Correction Factor: 15 mg/dL/unit * Nutritional / Prandial insulin per carb ratio of 1 unit per 4 grams CHO consumed * Please note that the plan above was derived based on current level of insulin resistance and hospital stress. These recommendations are appropriate for inpatient admission only. Plan of care upon discharge will need to be reassessed to avoid potential outpatient hypo/hyperglycemia.
--- NOTE | 2019-10-09 18:09 | Hospitalist Progress Note ---
Date of Service October 09, 2019 Assessment & Plan (1) Status post lumbar surgery: Post op day# 2 S/P L2-L5 decompression and fusion by Dr Cabral Acute blood loss and hemodilution related anemia Preoperative H&H was 12.0 g/dl and 35.3%. /post op H&H drop noted to 8.2 /HCT 23 % hb remains stable @ 8 possible cause Perioperative blood loss pt recieved IV fluid as well follow H&H transfusion for Hb < 8 or symptomatic - -PT/OT per Ortho -incentive spirometry (2) Type 2 diabetes mellitus: Pt Reports A1c: 7.3 on 09/29/2019 (do not have formal documentation) -Hold metformin-will be resumed on discharge -Novolog sliding scale, glycemic pharmacy on board, appreciate management (3) HTN (hypertension): BP stable - lisinopril/HCTZ resumed (4) HLD (hyperlipidemia): -Continue rosuvastatin (5) Sleep apnea: -CPAP HS (6) History of gout: -Continue allopurinol DVT Prophylaxis -SCDs per ortho Disposition per primary service/spinal Orthopedics Dr Cabral Follows with Dr Isidro Barajas in [place] for routine care Thank you for this consultation. We will follow the patient with you during their hospital stay. You can reach a [facility] via pager @ [phone]. Admission and Anticipated Discharge Date Admission Date: October 07, 2019 Subjective doing well able to walk on hallway participating with PT/OT no fever or chills still has EDDIE drain with serosanguineous drainage has not had any bowel movement yet getting bowel regimen , had dulculax suppository earlier no complain of abdominal pain , no nausea or vomiting Review of Systems Review of Systems: All systems reviewed & are unremarkable except as noted in HPI & below Physical Exam Physical Exam: General: no distress, obesity Head: normocephalic, atraumatic Eyes: PERRL, EOM's intact, conjunctiva non-injected, anicteric ENT: normal inspection external ears, nose, mucous membranes moist Neck: supple, trachea midline Lungs: clear, no respiratory distress, no wheezing/rhonchi/rales CV: RRR, no murmur, no pretibial edema Abd: normal BS, soft, non-tender Back: surgical dressing in place is dry, +EDDIE drain with serosanguineous drainage Ext: no cyanosis, no calf tenderness; pedal pushes and pulls intact bilaterally, sensation to light touch intact, distal pulses intact EDDIE drain present with serosanguineous drainage Neuro: A&O x 3, no focal deficits noted, normal affect Skin: warm, dry Results & Data Results & Data ([facility]) Vital Signs (Past 12 Hours) Vital Signs Temp Pulse Resp BP Pulse Ox 10/09/19 15:51 36.5 C 87 17 134/74 94 10/09/19 06:35 36.8 C 90 14 126/74 94
[2019-10-09] MEDS: ROSUVASTATIN CALCIUM 10 MG TAB PO SCH (21:04)
[2019-10-09] MEDS: DOCUSATE SODIUM/SENNA 50/8.6MG TAB PO SCH (21:05)
[2019-10-10] MEDS ORDERED: INSULIN ASPART 100 UNITS/ML 3 ML PEN SC SCH
[2019-10-10] MEDS: OXYCODONE HCL IR 5 MG TAB (IMMEDIATE RELEASE) PO PRN ×4 (02:54→21:24)
[2019-10-10 05:57] LABS: Hematocrit (blood only) 24.1 % (42-52); Hemoglobin 8.1 g/dL (14.0-18.0)
[2019-10-10] MEDS: POLYETHYLENE (MIRALAX) 17 GM PACK PO SCH ×4 (06:10→23:36)
--- NOTE | 2019-10-10 08:25 | Pharmacy Report ---
Pharmacy Glycemic Short Note 2 - Date of Service October 10, 2019 - Glycemic Short BSG Results (Last 24 hours): 10/09/19 10/09/19 10/09/19 12:23 17:06 20:53 POC Glucose 135 H 191 H 174 H 10/09/19 10/10/19 23:46 08:12 POC Glucose 150 H 228 H ASSESSMENT: * BSGs ranging 135-191 mg/dL yesterday * Patient received 90 units of insulin - 25 units of NPH to cover IV dexamethasone, 65 units of prandial/correctional * Fasting BSG this morning of 228 mg/dL * Continues on IV dexamethasone 8 mg daily - will increase NPH today * Today is POD #3 - lumbar decompression/fusion * Will maintain more aggressive CR today PLAN FOR INPATIENT GLYCEMIC CONTROL: * Holding outpatient oral diabetes medications * Basal insulin - increase * NPH 35 units (0.35 unit/kg) x 1 * Bolus insulin - continue * NovoLog per scale ACHS or Q6hrs while NPO * Goal Range: Low 110 mg/dL - High 140 mg/dL * Correction Factor: 15 mg/dL/unit * Nutritional / Prandial insulin per carb ratio of 1 unit per 4 grams CHO consumed * Please note that the plan above was derived based on current level of insulin resistance and hospital stress. These recommendations are appropriate for inpatient admission only. Plan of care upon discharge will need to be reassessed to avoid potential outpatient hypo/hyperglycemia.
[2019-10-10] MEDS: LISINOPRIL/HCTZ 20/25MG 1 TAB PO SCH (08:57)
[2019-10-10] MEDS: allopurinoL 300 MG TAB PO SCH (08:57)
[2019-10-10] MEDS: DEXAMETHASONE SOD PHOSPHATE 8 MG in SYRINGE 0 ML IV SCH (08:57)
[2019-10-10] MEDS: INSULIN ASPART 100 UNITS/ML 3 ML PEN SC SCH ×4 (08:58→21:13)
[2019-10-10] MEDS ORDERED: NovoLIN-N (NPH) PER UNIT CHARGE SQ ONE (09:00)
--- NOTE | 2019-10-10 09:46 | Orthopedic Progress Note ---
Date of Service October 10, 2019 Assessment & Plan (1) Neurogenic claudication due to lumbar spinal stenosis: This time we will continue physical therapy advance his bowel regiment monitor his EDDIE output anticipate discharge home tomorrow. Present on Admission?: Yes Admission and Anticipated Discharge Date Admission Date: October 07, 2019 Subjective Back pain controlled leg symptoms improved. No bowel movement as of yet. Physical Exam Physical Exam: Patient has good strength testing appears comfortable. Results & Data ([facility]) Vital Signs (Past 12 Hours) Vital Signs Temp Pulse Pulse Resp BP Pulse Ox 10/10/19 07:51 36.6 C 84 17 137/75 94 10/10/19 03:44 77 16 97 10/09/19 23:43 36.5 C 76 14 129/75 96 10/09/19 23:05 77 18 96
[2019-10-10] MEDS: MAGNESIUM HYDROXIDE SUSP 30 ML UDC PO PRN (13:31)
--- NOTE | 2019-10-10 17:58 | Hospitalist Progress Note ---
Date of Service October 10, 2019 Assessment & Plan (1) Status post lumbar surgery: Post op day# 3 S/P L2-L5 decompression and fusion by Dr Cabral Acute blood loss and hemodilution related anemia Preoperative H&H was 12.0 g/dl and 35.3%. /post op H&H drop noted to 8.2 /HCT 23 % hb remains stable @ 8 possible cause Perioperative blood loss follow H&H transfusion for Hb < 8 or symptomatic - -PT/OT per Ortho -incentive spirometry (2) Type 2 diabetes mellitus: Pt Reports A1c: 7.3 on 09/29/2019 (do not have formal documentation) -Hold metformin-will be resumed on discharge -Novolog sliding scale, glycemic pharmacy on board, appreciate management (3) HTN (hypertension): BP stable - lisinopril/HCTZ resumed (4) HLD (hyperlipidemia): -Continue rosuvastatin (5) Sleep apnea: -CPAP HS (6) History of gout: -Continue allopurinol DVT Prophylaxis -SCDs per ortho Disposition per primary service/spinal Orthopedics Dr Cabral Follows with Dr Isidro Barajas in [place] for routine care Thank you for this consultation. We will follow the patient with you during their hospital stay. You can reach a [facility] via pager @ [phone]. Admission and Anticipated Discharge Date Admission Date: October 07, 2019 Subjective Doing well postop, ambulating independently with minimum assistance, Has EDDIE drain, Still did not had no bowel movement, received enema last night Denies of any abdominal pain no nausea vomiting no dizzy spell lightheadedness no Fever chills or cough Physical Exam Physical Exam: General: no distress, obesity Head: normocephalic, atraumatic Eyes: PERRL, EOM's intact, conjunctiva non-injected, anicteric ENT: normal inspection external ears, nose, mucous membranes moist Neck: supple, trachea midline Lungs: clear, no respiratory distress, no wheezing/rhonchi/rales CV: RRR, no murmur, no pretibial edema Abd: normal BS, soft, non-tender Back: surgical dressing in place is dry, +EDDIE drain with serosanguineous drainage Ext: no cyanosis, no calf tenderness; pedal pushes and pulls intact bilaterally, sensation to light touch intact, distal pulses intact EDDIE drain present with serosanguineous drainage Neuro: A&O x 3, no focal deficits noted, normal affect Skin: warm, dry Results & Data Results & Data ([facility]) Vital Signs (Past 12 Hours) Vital Signs Temp Pulse Resp BP Pulse Ox 10/10/19 15:44 36.7 C 80 16 110/70 94 10/10/19 07:51 36.6 C 84 17 137/75 94
[2019-10-10] MEDS: ROSUVASTATIN CALCIUM 10 MG TAB PO SCH (21:24)
[2019-10-10] MEDS: DOCUSATE SODIUM/SENNA 50/8.6MG TAB PO SCH (21:24)
[2019-10-11] MEDS: OXYCODONE HCL IR 5 MG TAB (IMMEDIATE RELEASE) PO PRN ×2 (03:52→12:52)
[2019-10-11] MEDS: POLYETHYLENE (MIRALAX) 17 GM PACK PO SCH (05:51)
[2019-10-11 05:53] LABS: Hematocrit (blood only) 24.7 % (42-52); Hemoglobin 8.4 g/dL (14.0-18.0)
[2019-10-11] MEDS: LISINOPRIL/HCTZ 20/25MG 1 TAB PO SCH (08:53)
[2019-10-11] MEDS: DEXAMETHASONE SOD PHOSPHATE 8 MG in SYRINGE 0 ML IV SCH (08:53)
[2019-10-11] MEDS: allopurinoL 300 MG TAB PO SCH (08:53)
[2019-10-11] MEDS: INSULIN ASPART 100 UNITS/ML 3 ML PEN SC SCH ×2 (08:55→12:54)
[2019-10-11] MEDS ORDERED: NovoLIN-N (NPH) PER UNIT CHARGE SQ ONE ×2 (09:00)
--- NOTE | 2019-10-11 11:20 | Discharge Summary ---
Date of Service October 11, 2019 Admission HPI Per Admitting Provider This is a 69-year-old male who presents with worsening back and bilateral leg pain. After failing course of nonoperative care is here for surgical intervention. Principal Diagnosis Lumbar spinal stenosis with neurogenic claudication Discharge Data Allergies Allergy/AdvReac Type Severity Reaction Status Date / Time ibuprofen [From Motrin] AdvReac Unknown PT HAS HX Verified 10/07/19 08:24 GI BLEED Consultations 10/07/19 14:26 Consult Case Management - Discharge Planning Routine Consult Hospitalist Routine Procedures Performed Operation Date: 10/07/19 09:35 Actual Procedures p L2-S1 Decompression Fusion, Spinal Cord Monitoring(Not Applicable) - Cj Cabral DO Ordered Studies 10/07/19 09:35 FL fluoroscopy <1hr Routine FL lumbar spine 2-3V Routine Hospital Course (1) Neurogenic claudication due to lumbar spinal stenosis: Patient with lumbar decompression fusion tolerated as well as taken to orthopedic for possibly. Postop day 1 is up and ambulating leg symptoms improved he progressed to postop day #2 and 3 with steady decline in EDDIE output on postop day #4 his bowels finally worked pain was well controlled excellent strength testing subsequently discharged home. Discharge orders and instructions from the chart for further review. Total Time Total Time Spent Total Time Spent (In Minutes): 20 minutes Discharge Plan Discharge Items Patient Disposition: Home - Self-Care Reason For Visit: LUMBAR SPINAL STENOSIS W NEUROGENIC CLAUDICATION Discharge Diagnosis: Lumbar spinal stenosis with neurogenic claudication Activity: As commented below Non-emergency contact: Primary Care Provider Call non-emergency contact if: you have any medication questions Follow-up/Referrals: Cj Cabral DO [Surgeon] - Isidro Barajas DO [Primary Care Provider] - Diet: Regular Addtl Attending Provider Instructions: ACTIVITY RECOMMENDATIONS: SELF CARE INSTRUCTIONS AFTER THORACIC/LUMBAR FUSIONS 1. You may walk to your tolerance. It is good exercise for your legs and back. Expect some back and intermittent leg aches and pains. 2. You may perform "counter-top" level activities (make a sandwich, sandie with a project, etc.). 3. No bending or lifting of more than 10 pounds or back twisting of any nature (roll like a log when turning in bed). 4. You may ride in a car for 20-30 minutes at a time. No driving until after your first visit with your doctor. 5. Frequent changes of position and restricting sitting to 30 minutes at a time will help limit the amount of back spasms and stiffness you may experience. 6. You may discontinue the use of ambulatory aids (cane, crutches, etc.) once your strength and confidence allow. 7. You may field training agent the shower and let water strike your incision when you arrive home at least once daily. Do not take a tub bath, sit in a hot tub or go into a swimming pool until after your first recheck in the office. SPECIAL CARE INSTRUCTIONS: VERY IMPORTANT TO READ AND REVIEW A. Your surgical incision has been closed with a cosmetic suture under the skin that will dissolve in about 6 weeks. In 14 days, you can use a pair of clean scissors and cut the suture that is left outside of the skin at the ends of your incision. 1. The small skin tapes can be removed 7 days after surgery if they have not fallen off by that point. 2. You may keep the wound open to air as much as possible to promote healing after post-op day number 5 unless told otherwise by your doctor. 3. If you think the wound looks like it is becoming infected (redness or worsening drainage) and/or you are experiencing fever, chill or worsening back pain and muscle spasms, contact the office so that we may evaluate you as soon as possible. B. Complications are uncommon, but please contact us if you have any signs or symptoms of: 1. wound infection (fever higher than 102.5 degrees F, redness, separation of wound, drainage, or increasing pain from the incision) 2. blood clots in legs (pain, swelling, redness and warmth in legs) 3. urinary tract infection (fever higher than 102.5 degrees F, burning upon urination or increased frequency of urination) 4. nerve problems (inability to walk on your toes or heels, numbness, loss of bowel or bladder control) 5. any other symptoms that concern you C. Please call the office at if you have any concerns or questions about your operation or recovery. D. No smoking! Smoking drastically decreases the chance of a solid fusion. E. Do not take any anti-inflammatory medications (Indocin, Advil, Motrin, Aspirin, Naprosyn, etc.) as these may inhibit the chance of a solid fusion. Tylenol is okay to take for pain. MANAGING PAIN AFTER SPINAL SURGERY 1. Narcotic medication is intended for short-term use and will be provided for surgical pain. Surgical pain usually lasts for a period of 4-6 weeks. Narcotic medication includes Percocet, Vicodin, Darvocet, Tylenol #3 or Lortab. 2. Longer-term pain is more appropriately treated with non-narcotic medication such as Tylenol ES. 3. Muscle spasm is not appropriately treated with narcotics. Muscle relaxers such as Soma, Flexeril or Skelaxin can be used along with Tylenol ES. 4. Remember that we all live with some "aches and pains". This is not unusual or uncommon after an injury or as we get older. a. Back pain is expected and may include muscle spasms for 4 to 6 weeks after surgery. The pain should gradually improve. If the pain worsens for no apparent reason, please contact the office. b. Intermittent leg pain may also be experienced and should not be concerned about unless it worsens for no apparent reason. If so, please contact the office. 5. We will provide appropriate medication within the normal guidelines of their prescribed use. We will also be very cautious and aware of potential abuse and extended duration of patients' medication needs. a. Pain medications are for your comfort and to assist with sleep and rest so that the tissue can heal. They are not provided in order to return to normal activity and should not be used through the day. To do so or worsening pain at night can result from ongoing tissue damage and development of tolerance to the prescribed medicine. 6. Please allow 2-3 days to process refills. Prescriptions will not be mailed but must be picked up at the office. FOLLOW UP VISIT: Keep your scheduled follow-up appointment. Any questions, please call the office at . Pending Studies at Discharge: No Stand-Alone Forms: My [facility] Urban Traffic, Opioid Pain Management, Smoking C essation Medications and DC Order Prescriptions: New tramadol 50 mg tablet 50 mg PO Q6H PRN (Reason: pain, moderate) Qty: 20 RF: 0 oxycodone 5 mg tablet 5 mg PO Q6H PRN (Reason: pain, severe) Qty: 20 RF: 0 Continued metformin 500 mg Tablet 500 mg PO DAILY RF: 0 acetaminophen [Tylenol Extra Strength] 500 mg Tablet 500 mg PO UD PRN (Reason: Pain) RF: 0 lisinopril-hydrochlorothiazide 20-25 mg Tablet 1 tab PO QAM RF: 0 allopurinol 300 mg Tablet 300 mg PO QAM RF: 0 loratadine [Claritin] 10 mg Tablet 10 mg PO DAILY PRN (Reason: HAY FEVER) RF: 0 rosuvastatin [Crestor] 10 mg Tablet 10 mg PO HS RF: 0 metformin 500 mg Tablet 1,000 mg PO PM RF: 0 Discontinued hydrocodone-acetaminophen 5-325 mg Tablet 1 tab PO UD PRN (Reason: Pain) RF: 0 Discharge Orders: Discharge Order (Routine); Ordered 10/11/19 Ordered By: Cj Gastelum/Other Patient Handouts: Preventing Deep Vein Thrombosis Admission Data Admit Date/Time: 10/07/19 13:12 Attending Provider: Cj Cabral Admit Provider: Cj Cabral Primary Care Provider: Isidro Barajas Other Providers: Alana Allred ; César Jay Other Interventions: Discharge Summary Assessment (RN) Last Done: 10/11/19 10:14
== END 2019-10-11 13:17 | disposition home or self-care (01) | DRG 454 ==
LOC: ASU 07:52 → 3E 13:12